=== PATIENT | female | born 1995 | race American Indian/Alaskan Native ===

== ENCOUNTER 2017-05-07 17:11 | Emergency (ER) | payer OTHER ==
[2017-05-07] MEDS ORDERED: TYLENOL PO ONE (17:35)
--- NOTE | 2017-05-07 20:40 | Emergency Department Report ---
- General Chief Complaint: Fever Stated Complaint: NUMBNESS NECK DOWN Time Seen by Provider: 05/07/17 20:19 Source: patient Mode of arrival: Ambulatory Limitations: No Limitations - History of Present Illness Initial Comments: Patient is 21 years old female with no significant past medical history, came today with fever, sore throats, runny nose and generalized body pain for the last 2 days. Patient denied nausea or vomiting. No other complaint. MD Complaint: fever, cough, sore throat, nasal congestion Severity scale (0 -10): 2 Associated Symptoms: fever, chills, rhinorrhea, nasal congestion, sore throat - Related Data Allergies Allergy/AdvReac Type Severity Reaction Status Date / Time No Known Allergies Allergy Verified 05/07/17 20:20 ED Review of Systems ROS: Stated complaint: NUMBNESS NECK DOWN Other details as noted in HPI Comment: All other systems reviewed and negative Constitutional: chills, fever ENT: throat pain. denies: ear pain, hearing loss Respiratory: cough Cardiovascular: denies: chest pain, palpitations, dyspnea on exertion Gastrointestinal: denies: abdominal pain, nausea, vomiting, diarrhea Genitourinary: denies: urgency, dysuria, frequency, hematuria Skin: denies: rash, lesions Neurological: denies: headache, weakness, numbness, paresthesias ED Past Medical Hx - Past Medical History Previous Medical History?: No - Surgical History Additional Surgical History: tonsillectomy - Social History Smoking Status: Never Smoker Substance Use Type: None ED Physical Exam - General Limitations: No Limitations General appearance: alert, in no apparent distress - Head Head exam: Present: normocephalic - Eye Eye exam: Present: normal appearance, PERRL, EOMI Pupils: Present: normal accommodation - ENT ENT exam: Present: normal exam, mucous membranes moist, other (pharyngeal erythema) - Neck Neck exam: Present: normal inspection - Respiratory Respiratory exam: Present: normal lung sounds bilaterally. Absent: wheezes, rales, rhonchi - Cardiovascular Cardiovascular Exam: Present: tachycardia, normal heart sounds. Absent: systolic murmur, diastolic murmur - GI/Abdominal GI/Abdominal exam: Present: soft, normal bowel sounds. Absent: distended, tenderness, guarding, rebound, rigid - Extremities Exam Extremities exam: Present: normal inspection, normal capillary refill - Back Exam Back exam: Present: normal inspection. Absent: CVA tenderness (R), CVA tenderness (L) - Neurological Exam Neurological exam: Present: alert, oriented X3, CN II-XII intact, normal gait - Skin Skin exam: Present: warm, intact, normal color ED Course Vital Signs 05/07/17 05/07/17 05/07/17 17:30 17:35 21:05 Temperature 100.4 F H 99 F Pulse Rate 124 H 99 H Respiratory 18 18 16 Rate Blood Pressure 132/78 Blood Pressure 112/73 [Left] O2 Sat by Pulse 98 99 Oximetry 05/07/17 21:06 Temperature Pulse Rate Respiratory 16 Rate Blood Pressure Blood Pressure [Left] O2 Sat by Pulse 99 Oximetry - Reevaluation(s) Reevaluation #1: 05/07/17 22:52 Patient stated that she is feeling better. Critical care attestation.: If time is entered above; I have spent that time in minutes in the direct care of this critically ill patient, excluding procedure time. ED Disposition Clinical Impression: Upper respiratory infection, Viral syndrome Disposition: DC-01 TO HOME OR SELFCARE Is pt being admited?: No Condition: Stable Instructions: Viral Syndrome (ED)
[2017-05-07] MEDS ORDERED: ROBITUSSIN AC PO ONE (20:52)
[2017-05-07 21:06] VITALS: BP 112/73
== END 2017-05-07 23:17 | disposition home or self-care (01) ==
LOC: ED 17:11
DX: J06.9 Acute upper respiratory infection, unspecified (principal); B34.9 Viral infection, unspecified
CPT/HCPCS: 87116; 87400; 87430; 99282

== ENCOUNTER 2017-07-24 13:38 | Emergency (ER) | payer SELFPAY ==
[2017-07-24 14:17] VITALS: BP 128/74
[2017-07-24 16:15] LABS: HCG Qualitative,Urine Negative (Negative)
== END 2017-07-24 15:42 | disposition left against medical advice (07) ==
LOC: ED 13:38
DX: R51 Headache (principal); Z53.21 Procedure and treatment not carried out due to patient leaving prior to being seen by health care provider
CPT/HCPCS: 81025

== ENCOUNTER 2018-10-18 01:44 | Inpatient (IN) | payer MEDICAID ==
[2018-10-18] MEDS ORDERED: MINERAL OIL PO PRN (02:24)
[2018-10-18] MEDS ORDERED: SUBLIMAZE IV PRN (02:24)
[2018-10-18] MEDS ORDERED: BRETHINE SUB-Q PRN (02:24)
[2018-10-18] MEDS ORDERED: BRETHINE IVP PRN (02:24)
[2018-10-18] MEDS ORDERED: XYLOCAINE 2% INFILTRATI ONE (02:24)
[2018-10-18] MEDS ORDERED: AMPICILLIN/NS 2 GM/100 ML 2 GM/100 ML BAG IV ONE (02:31)
[2018-10-18 02:54] LABS: Hemoglobin 12.6 gm/dl (10.1-14.3); Mean Corpuscular HGB Conc 33 % (30-34); Mean Corpuscular Volume 94 fl (79-97); Platelet Count 231 K/mm3 (140-440); Red Blood Count 4.02 M/mm3 (3.65-5.03); Red Cell Distribution Width 13.6 % (13.2-15.2)
[2018-10-18] MEDS ORDERED: PITOCin/NS 20 UNIT/1000ML DRIP 20 UNITS/1,000 ML BAG IV SCH ×2 (03:00→06:38)
[2018-10-18] MEDS ORDERED: LACTATED RINGERS 1,000 ML IV SCH (03:00)
--- NOTE | 2018-10-18 03:08 | History and Physical Report ---
History of Present Illness Date of examination: 10/18/18 Chief complaint: painful uterine contractions History of present illness: EDC Confirmation: 10/23/2018 Past History : 1 Term Births: 0 Premature Births: 0 Living Children: 0 Para: 0 Mult. Births: 0 Prev : 0 Aborta: 0 Elect. Ab: 0 Spont. 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 of genital herpes: no Genetic History Congenital Heart Defect: Mom: no Dad: no Rochelle Disease: Mom: no Dad: no Thalassemia Mom: no Dad: no Neural Tube Defect Mom: no Dad: no Down's Syndrome Mom: no Dad: no Mitch-Sachs Mom: no Dad: no Sickle Cell Disease/Trait Mom: no Dad: no Hemophilia Mom: no Dad: no Muscular Dystrophy Mom: no Dad: no Cystic Fibrosis Mom: no Dad: no Demetri Chorea Mom: no Dad: no Mental Retardation Mom: no Dad: no Fragile X Mom: no Dad: no Other Genetic/Chromosomal Disorder Mom: no Dad: no Child w/other defect Mom: no Dad: no Enviromental Exposures Xray Exposure: no Medication, drug, or alcohol use since LMP: no Chemical/Other Exposure: no Exposure to Cat Liter: no Current Allergies (reviewed today): No known allergies Past History Past Medical History: other (see HPI) Past Surgical History: other (see HPI) 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 (dx @ 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 ) Family/Genetic History: other (see HPI) - Obstetrical History Expected Date of Delivery: 10/23/18 Actual Gestation: 39 Week(s) 2 Day(s) : 1 Para: 0 Hx # Term Pregnancies: 0 Number of Pregnancies: 0 Spontaneous Abortions: 0 Induced : 0 Number of Living Children: 0 Medications and Allergies Allergies Allergy/AdvReac Type Severity Reaction Status Date / Time No Known Allergies Allergy Verified 05/07/17 20:20 Home Medications Medication Instructions Recorded Confirmed Last Taken Type guaiFENesin/CODEINE [Robitussin AC] 10 ml PO TID PRN #100 ml 05/07/17 Unknown Rx Active Meds: Active Medications Ephedrine Sulfate (Ephedrine Sulfate) 10 mg IV Q2M PRN PRN Reason: Hypotension Fentanyl (Sublimaze) 100 mcg IV Q2H PRN PRN Reason: Labor Pain Lactated Ringer's (Lactated Ringers) 1,000 mls @ 125 mls/hr IV DIRECT SHARAD Oxytocin/Sodium Chloride (Pitocin/Ns 20 Unit/1000ml Drip) 20 units in 1,000 mls @ 125 mls/hr IV DIRECT SHARAD Ampicillin Sodium (Polycillin/Ns 2 Gm/100 Ml) 2 gm in 100 mls @ 100 mls/hr IV ONCE ONE Stop: 10/18/18 03:30 Ampicillin Sodium (Ampicillin/Ns 1 Gm/50 Ml) 1 gm in 50 mls @ 100 mls/hr IV Q4HR SHARAD; Protocol Mineral Oil (Mineral Oil) 30 ml PO QHS PRN PRN Reason: Constipation Terbutaline Sulfate (Brethine) 0.25 mg SUB-Q ONCE PRN PRN Reason: Hyperstimulation/Hypertonicity Terbutaline Sulfate (Brethine) 0.25 mg IVP ONCE PRN PRN Reason: Hyperstimulation/Hypertonicity Review of Systems All systems: negative - Vital Signs Vital signs: Vital Signs Pulse BP 99 H 130/59 10/18/18 01:57 10/18/18 01:57 Temp Pulse Resp BP Pulse Ox 78 122/61 10/18/18 03:01 10/18/18 03:01 - Physical Exam Breasts: Positive: normal Cardiovascular: Regular rate Lungs: Positive: Clear to auscultation, Normal air movement Abdomen: Positive: normal appearance, soft Genitourinary (Female): Positive: normal external genitalia, normal perenium Vulva: both: normal Vagina: Positive: normal moisture Uterus: Positive: normal size Anus/Rectum: Positive: normal perianal skin Deep Tendon Reflex Grade: Normal +2 - Obstetrical FHR: category 1 Uterine Contraction Monitor Mode: External Cervical Dilatation: 5 Uterine Contraction Pattern: Regular Uterine Tone Measurement Phase: Contraction Uterine Contraction Intensity: Moderate Results Result Diagrams: 04/26/19 02:45 All other labs normal. Assessment and Plan 22y/o @ 39+1 admitted in labor, currently with regular ctx and SVE 5cm per manager distribution. GBS POS. Admission orders in EMR. Anticipate . - Patient Problems (1) 39 weeks gestation of Current Visit: Yes Status: Acute (2) GBS (group B Streptococcus carrier), +RV culture, currently Current Visit: Yes Status: Acute Plan to address problem: Ampicillin q4h until delivery (3) Active labor at term Current Visit: Yes Status: Acute
--- NOTE | 2018-10-18 04:40 | Procedure Note ---
OB Delivery Note - Delivery Date of Delivery: 10/18/18 ( female) Floriculturist: ZOË BARNHART Estimated blood loss: 300cc - Vaginal Delivery presentation: vertex Delivery position: OA (LEELA) Intrapartum events: none Delivery induction: none Delivery monitor: external FHT, external uterine Route of delivery: Delivery placenta: spontaneous Delivery cord: 3 umbilical vessels Episiotomy: none Delivery laceration: other (abrasion to vaginal floor - repair not warranted ) Anesthesia: none Delivery comments: female del over intact perineum, LEELA, placed skin to skin on mother's abdomen. 3 vessle cord clamped and cut after cessation of pulsation. Placenta del intact and complete. Pit to IVF. no laceration requiring repair. EBL 300, apgars 8/9, wt 7#7oz. mother and infant remain LDR stable. - Infant A at 1 minute: 8 at 5 minutes: 9 Gender: Female (7#7oz)
[2018-10-18] MEDS ORDERED: AMPICILLIN/NS 1 GM/50 ML 1 GM/50 ML BAG IV SCH (06:00)
[2018-10-18] MEDS ORDERED: SODIUM CHLORIDE FLUSH SYRINGE 10 ML IV NR (06:38)
[2018-10-18] MEDS ORDERED: TYLENOL PO PRN (06:38)
[2018-10-18] MEDS ORDERED: BENADRYL PO PRN (06:38)
[2018-10-18] MEDS ORDERED: ZOFRAN IV PRN (06:38)
[2018-10-18] MEDS ORDERED: PHENERGAN PO PRN (06:38)
[2018-10-18] MEDS ORDERED: TUCKS PAD TP PRN (06:38)
[2018-10-18] MEDS ORDERED: DERMOPLAST TP PRN (06:38)
[2018-10-18] MEDS ORDERED: LANSINOH TP PRN (06:38)
[2018-10-18] MEDS: IBUPROFEN PO SCH ×3 (09:00→23:54)
[2018-10-18] MEDS: COLACE PO SCH ×2 (09:00→23:55)
[2018-10-18] MEDS ORDERED: DULCOLAX PR PRN (10:00)
[2018-10-18] MEDS ORDERED: PRENATAL VITAMIN PO SCH (10:00)
[2018-10-18 16:35] LABS: Hematocrit 34.1 % (30.3-42.9)
[2018-10-18] MEDS ORDERED: MILK OF MAGNESIA PO PRN (22:00)
[2018-10-19] MEDS: IBUPROFEN PO SCH ×2 (05:47→22:27)
[2018-10-19] MEDS ORDERED: BOOSTRIX IM ONE (06:00)
--- NOTE | 2018-10-19 08:41 | Discharge Summary ---
Providers - Providers Date of Admission: 10/18/18 03:26 Date of discharge: 10/20/18 Attending physician: XIOMARA GILMAN Primary care physician: XIOMARA GILMAN Hospitalization Reason for admission: labor Condition: Good Pertinent studies: post delivery h&h .1 Procedures: Hospital course: uncomplicated and course Disposition: DC-01 TO HOME OR SELFCARE Core Measure Documentation - Palliative Care Palliative Care/ Comfort Measures: Not Applicable - Core Measures Any of the following diagnoses?: none Exam - Constitutional Vitals: Temp Pulse Resp BP Pulse Ox 98.9 F 88 20 108/57 97 10/19/18 00:55 10/19/18 00:55 10/19/18 05:47 10/19/18 00:55 10/19/18 00:55 General appearance: Present: no acute distress, well-nourished - EENT Eyes: Present: PERRL ENT: hearing intact, clear oral mucosa - Neck Neck: Present: supple, normal ROM - Respiratory Respiratory effort: normal Respiratory: bilateral: CTA - Cardiovascular Rhythm: regular Heart Sounds: Present: S1 & S2. Absent: rub, click - Extremities Extremities: pulses symmetrical, No edema Peripheral Pulses: within normal limits - Abdominal General gastrointestinal: Present: soft, non-tender, non-distended, normal bowel sounds Female genitourinary: Present: normal - Integumentary Integumentary: Present: clear, warm, dry - Musculoskeletal Musculoskeletal: gait normal, strength equal bilaterally - Psychiatric Psychiatric: appropriate mood/affect, intact judgment & insight - Neurologic Neurologic: CNII-XII intact, moves all extremities - Additional findings Additional findings: Fundus firm, ML, U/2. Vaginal bleeding is small. Patient reports pain is well controlled with medications. She is bottle feeding . Reports breasts feel well. VSSAF. Plan Activity: no restrictions Diet: regular Follow up with: XIOMARA GILMAN MD [Primary Care Provider] - 11/18/18 (Congratulations! Please call [phone] to schedule your appointment in 4 weeks. Call with any questions or concerns. )
[2018-10-19] MEDS ORDERED: AFLURIA QUAD 2018-2019 SYRINGE IM ONE (12:00)
[2018-10-19] MEDS: COLACE PO SCH (22:28)
[2018-10-20] MEDS: IBUPROFEN PO SCH (02:00)
[2018-10-20 13:19] VITALS: BP 118/70
== END 2018-10-20 14:15 | disposition home or self-care (01) | DRG 775 ==
LOC: TRG 01:44 → LD 03:26 → OB 06:35
PROVIDERS: ADMIT Obstetrics & Gynecology; ATTEND Obstetrics & Gynecology
PROC: 10E0XZZ Delivery of Products of Conception, External Approach (ICD-10-PCS; principal; 2018-10-18)
DX: O99.824 Streptococcus B carrier state complicating childbirth (principal); O70.9 Perineal laceration during delivery, unspecified; Z3A.39 39 weeks gestation of pregnancy; Z37.0 Single live birth
CPT/HCPCS: 36415; 85014; 85018; 85027; 86592; 86762; 86850; 86900; 86901; 90686; G0378; J0290; J2590; J3010; J7120